=== PATIENT | female | born 1985 | race Caucasian/White ===

== ENCOUNTER 2020-01-07 06:09 | Day surgery (SDC) | payer OTHER ==
[2020-01-02 15:47] VITALS: BMI 22.8
--- NOTE | 2020-01-06 16:22 | P.HPOB ---
History of Present Illness H&P Date: 01/06/20 Chief Complaint: Family planning Sandip is a 34-year-old female who is completed her family planning and desires permanent sterilization. Risks/benefits/alternatives to a left scopic tubal occlusion with a prescription was done with the patient in detail and all questions were answered for her prior to proceeding to the operating room. She is scheduled for left scopic tubal occlusion with Filshie clips. Past Medical History Past Medical History: Asthma, Fibromyalgia, GERD/Reflux, Osteoarthritis (OA) Additional Past Medical History / Comment(s): "Regurgitation in a couple of valves." History of Any Multi-Drug Resistant Organisms: None Reported Past Surgical History: Breast Surgery, Orthopedic Surgery Additional Past Surgical History / Comment(s): Right wrist surgery X2, breast surgery X3, laproscopy, ovarian cyst surgery, hand right fatty tumor removed, control implanted, wisdom teeth extracted. Past Anesthesia/Blood Transfusion Reactions: Previous Problems w/ Anesthesia Additional Past Anesthesia/Blood Transfusion Reaction / Comment(s): "Sore body after anesthesia, has difficulty moving and sleeps a lot for 1- 1/2 days after anesthesia and then feels fine." Past Psychological History: Anxiety Smoking Status: Former smoker Past Alcohol Use History: Occasional Additional Past Alcohol Use History / Comment(s): Quit smoking 2 yrs ago, smoked 18 yrs, 1/2 PPD. Past Drug Use History: Marijuana Additional Drug Use History / Comment(s): Marijuana use occasionally. - Past Family History Mother Family Medical History: No Reported History Father Family Medical History: Unable to Obtain Medications and Allergies Home Medications Medication Instructions Recorded Confirmed Type Acyclovir (Unknown Dose) 1 tab PO DIRECTED PRN 01/02/20 01/02/20 History Albuterol Inhaler [Ventolin Hfa 1 puff INHALATION DIRECTED PRN 01/02/20 01/02/20 History Inhaler] HYDROcodone/APAP 7.5-325MG [[place] 1 tab PO DIRECTED PRN 01/02/20 01/02/20 History 7.5-325] Allergies Allergy/AdvReac Type Severity Reaction Status Date / Time adhesive Allergy Severe Rash/Hives Verified 01/02/20 15:50 Sulfa (Sulfonamide Allergy Severe Rash/Hives Verified 01/02/20 15:50 Antibiotics) cashew nut Allergy Unknown Verified 01/02/20 15:50 soy Allergy Unknown Verified 01/02/20 15:50 Tuna Allergy Throat Uncoded 01/02/20 15:51 itchy and swells Exam Osteopathic Statement: *. No significant issues noted on an osteopathic structural exam other than those noted in the History and Physical/Consult. - OBG Physical Exam Breast: both: normal (no masses) Abdomen: bowel sounds normal, no diffuse tenderness, no bruit present, no guarding noted, no hepatomegaly, no splenomegaly, no mass Vulva: both: normal Vagina: normal moisture, no discharge Cervix: no lesion, no discharge Uterus: normal size, normal contour Adnexa: both: normal Anus/Rectum: normal perianal skin, no rectal mass, no hemorrhoids, heme negative
[~2020-01-07 06:09] MED LIST: DEXAMETHASONE SOD PHOSPHATE 10 MG/ML 1 ML VIAL IV ONE; LACTATED RINGERS 1,000 ML IV SCH; LIDOCAINE 1% (10MG/ML) FOR IV START INTRADERMA PRN; MIDAZOLAM 2 MG/2 ML VIAL IV PRN; ONDANSETRON 4 MG/2 ML VIAL IVP ONE; Pre Op ABX Message 1 EACH MISC MISCELLANE ONE
[2020-01-07] MEDS ORDERED: ONDANSETRON 4 MG/2 ML VIAL ONE ×2 (06:48→10:45)
[2020-01-07] MEDS ORDERED: KETOROLAC 30 MG/ML 1 ML VIAL ONE ×2 (07:37→10:38)
[2020-01-07] MEDS ORDERED: LIDOCAINE 1% INJ 10MG/ML (20 ML MDV) ONE (07:37)
[2020-01-07] MEDS ORDERED: NEOSTIGMINE 1 MG/ML 10 ML VIAL ONE (07:37)
[2020-01-07] MEDS ORDERED: GLYCOPYRROLATE 0.2 MG/ML 2 ML VIAL ONE (07:37)
[2020-01-07] MEDS ORDERED: ROCURONIUM BROMIDE 10 MG/ML 5 ML VIAL IV ONE (07:37)
[2020-01-07] MEDS ORDERED: PROPOFOL 10 MG/ML 20 ML VIAL IV ONE (07:37)
[2020-01-07] MEDS ORDERED: MIDAZOLAM 2 MG/2 ML VIAL ONE (07:37)
[2020-01-07] MEDS ORDERED: fentaNYL (PF) 50 MCG/ML 2 ML AMP ONE (07:37)
[2020-01-07] MEDS ORDERED: BUPIVACAINE (PF) 0.25% 30 ML VIAL SQ ONE (08:11)
--- NOTE | 2020-01-07 08:16 | P.OP ---
Date of Procedure: 01/07/20 Preoperative Diagnosis: Family planning Postoperative Diagnosis: Same Procedure(s) Performed: Left scopic tubal occlusion with Filshie clips Anesthesia: CADE Surgeon: Vladimir Baum Estimated Blood Loss (ml): 5 IV fluids (ml): 600 Urine output (ml): 20 Pathology: none sent Condition: stable Disposition: same day Operative Findings: Normal pelvic anatomy. Patient essentially demanded Percocet in preop 10 pills are prescribed. She does take [place] at home and can offer no obvious reason for the change. But with only 10 pills prescribed for comfortable with the limited medication were giving her Description of Procedure: patient was taken to the operating suite where a general anesthetic was found be adequate. She was prepped and draped in the normal sterile fashion and placed in dorsal lithotomy position. Initially a speculum was inserted into the vagina and the anterior lip of the cervix was identified grasped with an Allis clamp and sounded to 7 cm uterine manipulator was inserted without difficulty and red rubber catheter was used to drain the bladder of urine. Other incidents were then removed along with the catheter. Gloves were then changed and attention was turned to the abdominal portion procedure where 3 mL of quarter percent Marcaine was injected periumbilically. Through this injected anesthetic a 5 mm skin incision was made and through this incision under direct visualization with an optical trocar and sleeve the camera was inserted. Once peritoneal placement was assured gas was allowed to fully insufflate the abdomen and patient was placed in steep Trendelenburg position. A second 8 mm skin incision was then made 3 cm above the pubic symphysis in the midline and through this incision an 8 mm trocar and sleeve were inserted again under direct visualization. Observations pelvis were noted. There was some tortuosity to the right fallopian tube but it was easily straightened. First the right fallopian tube than the left fallopian tube had a Filshie clip applied approximately 2-3 cm from uterine cornu. No bleeding is noted in the mesosalpinx there is incidental finding of a small hernia in the posterior cul-de-sac but otherwise normal anatomy. All incidents were then removed and gas was allowed to expel from the abdomen. 5 deep breaths were provided during this process. 4-0 Vicryl was then used to close incision subcuticular E and the remaining 7 mL of quarter percent Marcaine was injected around the incisions. Sponge, lap, needle counts were all correct 2. Patient was then taken to the recovery room in stable and satisfactory condition. Plan - Discharge Summary Discharge Rx Participant: Yes New Discharge Prescriptions: New oxyCODONE HCL/ACETAMINOPHEN [Percocet 5-325 mg] 1 tab PO Q4HR PRN 3 Days #10 tab PRN Reason: Pain Ibuprofen [Motrin] 600 mg PO Q6HR PRN #30 tab PRN Reason: Pain No Action Albuterol Inhaler [Ventolin Hfa Inhaler] 1 puff INHALATION DIRECTED PRN PRN Reason: Asthma Acyclovir (Unknown Dose) 1 tab PO DIRECTED PRN PRN Reason: Cold Sores HYDROcodone/APAP 7.5-325MG [[place] 7.5-325] 1 tab PO DIRECTED PRN PRN Reason: Pain Discharge Medication List Acyclovir (Unknown Dose) 1 tab PO DIRECTED PRN 01/02/20 [History] Albuterol Inhaler [Ventolin Hfa Inhaler] 1 puff INHALATION DIRECTED PRN 01/02/20 [History] HYDROcodone/APAP 7.5-325MG [[place] 7.5-325] 1 tab PO DIRECTED PRN 01/02/20 [History] Ibuprofen [Motrin] 600 mg PO Q6HR PRN #30 tab 01/07/20 [Rx] oxyCODONE HCL/ACETAMINOPHEN [Percocet 5-325 mg] 1 tab PO Q4HR PRN 3 Days #10 tab 01/07/20 [Rx] Follow up Appointment(s)/Referral(s): Vladimir Baum DO [Doctor of Osteopathic Medicine] - 1 Week Activity/Diet/Wound Care/Special Instructions: No heavy lifting, no driving and pelvic rest, limit stairs. If any high temperatures, heavy bleeding, or severe pain call my office Discharge Disposition: HOME SELF-CARE
[2020-01-07] MEDS: HYDROmorphone 0.5 MG/0.5 ML SYRINGE IVP PRN ×3 (08:25→08:53)
[2020-01-07] MEDS: fentaNYL (PF) 50 MCG/ML 2 ML AMP IVP ONE ×2 (08:35→08:43)
[2020-01-07 08:40] VITALS: RESP 18; TEMP 97.3
[2020-01-07] MEDS ORDERED: LACTATED RINGERS 1,000 ML IV ONE (08:45)
[2020-01-07] MEDS ORDERED: oxyCODONE-APAP 5-325MG 1 EACH TAB ONE (09:16)
[2020-01-07] MEDS ORDERED: oxyCODONE-APAP 5-325MG 1 EACH TAB PO ONE (09:17)
[2020-01-07 10:05] VITALS: BP 142/88; PULSE 45
[2020-01-07] MEDS ORDERED: HYDROmorphone 0.5 MG/0.5 ML SYRINGE IVP ONE (10:30)
[2020-01-07] MEDS ORDERED: KETOROLAC 30 MG/ML 1 ML VIAL IVP ONE (10:30)
[2020-01-07] MEDS ORDERED: ONDANSETRON 4 MG/2 ML VIAL IVP ONE (10:45)
== END 2020-01-07 11:20 | disposition home or self-care (01) ==
LOC: OR 06:09
PROVIDERS: ATTEND Obstetrics & Gynecology
DX: Z30.2 Encounter for sterilization (principal); J45.909 Unspecified asthma, uncomplicated; M19.90 Unspecified osteoarthritis, unspecified site; M79.7 Fibromyalgia; F41.9 Anxiety disorder, unspecified; Z88.2 Allergy status to sulfonamides; Z88.5 Allergy status to narcotic agent; Z91.018 Allergy to other foods; Z91.048 Other nonmedicinal substance allergy status; Z79.899 Other long term (current) drug therapy
CPT/HCPCS: 81025; 58671; J2250; J1100; J2710; J2405; J2001; J3010; J1885; J2704; J1170